=== PATIENT | female | born 1965 | race American Indian/Alaskan Native ===

== ENCOUNTER 2017-03-24 23:44 | Emergency (ER) | payer OTHER ==
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
[2017-03-25] MEDS ORDERED: TYLENOL PO ONE (04:48)
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
[2017-03-25 05:58] VITALS: BP 174/92
== END 2017-03-25 05:58 | disposition home or self-care (01) ==
LOC: ED 23:44
DX: M54.2 Cervicalgia (principal); R51 Headache; K21.9 Gastro-esophageal reflux disease without esophagitis; V89.2XXA Person injured in unspecified motor-vehicle accident, traffic, initial encounter; Y93.89 Activity, other specified; Y99.9 Unspecified external cause status; Y92.410 Unspecified street and highway as the place of occurrence of the external cause
CPT/HCPCS: 70450; 72125; 99283